=== PATIENT | male | born 1980 | race African-American/Black ===

== ENCOUNTER 2016-12-01 16:42 | Emergency (ER) | payer MEDICAID, OTHER ==
[~2016-12-01] VITALS: Ht 185.4 cm; Wt 80.0 kg
[~2016-12-01 16:42] MED LIST: ALBU0.63 NEB
[2016-12-01 17:00] VITALS: BP 110/68
== END 2016-12-01 18:31 | disposition home or self-care (01) ==
LOC: ED 18:25
DX: S09.93XA Unspecified injury of face, initial encounter (principal); J45.909 Unspecified asthma, uncomplicated; Y04.8XXA Assault by other bodily force, initial encounter; Y93.89 Activity, other specified; Y99.8 Other external cause status; Y92.009 Unspecified place in unspecified non-institutional (private) residence as the place of occurrence of the external cause
CPT/HCPCS: 70450; 70486

== ENCOUNTER 2018-06-17 07:56 | Emergency (ER) | payer SELFPAY ==
[~2018-06-17] VITALS: Ht 188 cm; Wt 97.0 kg
[2018-06-17] MEDS ORDERED: ALBUTEROL/IPRATROPIUM 2.5MG/0.5MG, 3 ML NPPB ONE (08:30)
[2018-06-17] MEDS ORDERED: ALBUTEROL/IPRATROPIUM 2.5MG/0.5MG, 3 ML ONE (08:42)
[2018-06-17 09:56] VITALS: BP 136/82
== END 2018-06-17 09:58 | disposition home or self-care (01) ==
LOC: ED 09:52
DX: J45.31 Mild persistent asthma with (acute) exacerbation (principal); F17.200 Nicotine dependence, unspecified, uncomplicated
CPT/HCPCS: 94640; 99283; J7512; J7620

== ENCOUNTER 2019-01-04 07:35 | Emergency (ER) | payer MEDICAID ==
[~2019-01-04] VITALS: Ht 188 cm; Wt 99.7 kg
[2019-01-04 07:41] VITALS: BP 142/92
--- NOTE | 2019-01-04 07:57 | NUR ---
VSS, UPDATED IN COMPUTER. LS CTA, PULSE OX 100% RA. PA AT BS ON PT ARRIVAL TO ROOM. PT REQUESTING NEB TX WHILE HERE AND RX.
[2019-01-04] MEDS ORDERED: hydrOXyzine 50MG TABLET ONE (08:06)
--- NOTE | 2019-01-04 08:19 | NUR ---
HYDROXYZINE GIVEN PER ERP ORDER. PT RESTING, AWAITING RT NEB TX. BP CUFF, PULSE OX IN PLACE. CALL LIGHT WITHIN REACH.
[2019-01-04] MEDS ORDERED: ALBUTEROL/IPRATROPIUM 2.5MG/0.5MG, 3 ML NPPB ONE (08:30)
[2019-01-04] MEDS ORDERED: ALBUTEROL/IPRATROPIUM 2.5MG/0.5MG, 3 ML ONE (08:31)
== END 2019-01-04 09:14 | disposition home or self-care (01) ==
LOC: ED 09:06
DX: J45.41 Moderate persistent asthma with (acute) exacerbation (principal); F41.1 Generalized anxiety disorder
CPT/HCPCS: 93005; 94640; 99283; J7620; Q0177

== ENCOUNTER 2020-07-06 17:55 | Emergency (ER) | payer MEDICAID ==
[~2020-07-06] VITALS: Ht 188 cm; Wt 115.3 kg
[2020-07-06] MEDS ORDERED: ALBUTEROL SULFATE 2.5 MG/3 ML NPPB ONE (18:30)
--- NOTE | 2020-07-06 20:50 | NUR ---
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 TO ROOM FROM LOBBY AT THIS TIME. NO DISTRESS NOTED.
[2020-07-06] MEDS ORDERED: ALBUTEROL SULFATE 2.5 MG/3 ML ONE (21:02)
--- NOTE | 2020-07-06 21:28 | NUR ---
CC OF INCREASED SOB OVER LAST FEW DAYS. PT STATES HE HEARD WHEEZING YESTERDAY, HX OF ASTHMA. PT REQUESTING INHALER AND HELP WITH GETTING ANTI DEPRESSANTS RX. PT EDUCATED ON GETTING SET UP WITH PCP AND RESOURCES GIVEN TO PT. PT VERBALIZES UNDERSTANDING. PT GIVEN BREATHING TREATMENT AND SPACER FOR HOME USE. PT STATES HE KNOWS HOW TO USE SPACER. NO WHEEZING HEARD AT THIS TIME, PT SPEAKING IN CLEAR FULL SENTENCES WITH NO DIFFICULTY OF BREATHING NOTED.
[2020-07-06 22:00] VITALS: BP 115/78
== END 2020-07-06 22:28 | disposition home or self-care (01) ==
LOC: ED 21:46
DX: J45.901 Unspecified asthma with (acute) exacerbation (principal); F17.210 Nicotine dependence, cigarettes, uncomplicated
CPT/HCPCS: 71045; 94640; 99283; 99406; J7512; J7613; 87635; 99284

== ENCOUNTER 2020-07-09 17:09 | Emergency (ER) | payer MEDICAID ==
[~2020-07-09] VITALS: Ht 188 cm; Wt 114.0 kg
[2020-07-09 17:13] VITALS: BP 115/73
--- NOTE | 2020-07-09 17:50 | NUR ---
Patient/Caregiver given discharge instructions and they have confirmed that they understand the instructions. Patient ambulatory with steady gait.
== END 2020-07-09 17:52 | disposition home or self-care (01) ==
LOC: ED 17:51
DX: Z20.828 Contact with and (suspected) exposure to other viral communicable diseases (principal); J45.909 Unspecified asthma, uncomplicated
CPT/HCPCS: 87635; 99283